=== PATIENT | male | born 1940 | race African-American/Black ===

== ENCOUNTER 2021-10-01 10:47 | Emergency (ER) | payer MEDICARE, MEDICAID ==
[~2021-10-01] VITALS: Ht 165.1 cm; Wt 89.0 kg
[2021-10-01] MEDS ORDERED: DIATR MEGLU/DIATRIZOATE SOLN 30ML ONE (14:05)
[2021-10-01 18:35] VITALS: BP 134/76
== END 2021-10-01 19:09 ==
LOC: ER 11:23
DX: Z43.1 Encounter for attention to gastrostomy (principal); G20 Parkinson's disease; F02.80 Dementia in other diseases classified elsewhere, unspecified severity, without behavioral disturbance, psychotic disturbance, mood disturbance, and anxiety; D64.9 Anemia, unspecified; J44.9 Chronic obstructive pulmonary disease, unspecified; K21.9 Gastro-esophageal reflux disease without esophagitis
CPT/HCPCS: 74018; 99284; Q9963